=== PATIENT | male | born 1965 | race Caucasian/White ===

== ENCOUNTER 2022-05-22 21:56 | Emergency (ER) | payer BC, OTHER, SELFPAY ==
[2022-05-22 22:03] VITALS: BP 146/102; PULSE 87; RESP 16; TEMP 36.3; O2SAT 95; BMI 45.3
--- NOTE | 2022-05-23 01:54 | ED.WOUNDLAC ---
HPI - Wound/Laceration General Chief Complaint: Laceration/Wound Stated Complaint: LEFT EYE INJURY - CAT Time Seen by Provider: 05/23/22 00:05 History of Present Illness HPI narrative: 56-year-old man presenting with laceration to his eye. Was resting on the couch with cat Antonio nearby. Getting up must have startled Antonio who swatted out. Then he noted the blood. Not really affecting his vision. Having a great deal of pain; ?11 ?. Had pulled down on his eye and saw that it was gapping. cat utd. Takes gabapentin and ibuprofen regularly Related Data Home Medications Medication Instructions Recorded Confirmed Benadryl 05/22/22 gabapentin 05/22/22 ibuprofen 05/22/22 Allergies Allergy/AdvReac Type Severity Reaction Status Date / Time No Known Drug Allergies Allergy Verified 05/22/22 22:07 Review of Systems Status of ROS: Reports: 6 or more systems reviewed and unremarkable except as noted in History and below PFSH PFS Social History Smoking Status: Never smoker How often do you have a drink containing alcohol: monthly or less AUDIT-C Alcohol total score: 1 Non-prescribed substance use details: cbd edibles Exam Narrative: Exam Narrative: Pleasant. NAD. Large man. calm There is a looks to be about a 1 in diagonal laceration dropping away inferior starting just medial to midline below the left eye in the lower eyelid not involving the lid margin. gaps and bleeds easily with manipulation. deepest aspect is superior. is not through and through. no ducts appear to be involved. EOMi and full eyelid appears to open and close normally. I do not see orbiculus muscle involvement. there does not appear to be trauma to the eye itself, corneal or otherwise upon closer inspection. no scleral injection. Const: Vital Signs, click to edit/add: Vital Signs - 24 hr 05/22/22 22:03 Temperature 97.3 F L Pulse Rate [Left P ulse Oximeter] 87 Respiratory Rate 16 Blood Pressure [Ri ght Upper Arm] 146/102 H Pulse Oximetry 95 Oxygen Delivery Me thod Room Air Documenting provider has reviewed patient's vital signs: yes Course Vital Signs Vital signs: Initial Vital Signs Temperature 97.3 F L 05/22/22 22:03 Temperature Source Temporal Artery Scan 05/22/22 22:03 Pulse Rate 87 08/24/22 22:03 Respiratory Rate 16 05/22/22 22:03 Blood Pressure 146/102 H 05/22/22 22:03 Blood Pressure Mean 116 05/22/22 22:03 Blood Pressure Position Sitting 05/22/22 22:03 Pulse Oximetry 95 05/22/22 22:03 Oxygen Delivery Method 05/22/22 22:03 Vital Signs Temperature 97.3 F L 05/22/22 22:03 Pulse Rate 87 05/22/22 22:03 Respiratory Rate 16 05/22/22 22:03 Blood Pressure 146/102 H 05/22/22 22:03 Pulse Oximetry 95 05/22/22 22:03 Oxygen Delivery Method 05/22/22 22:03 Temperature 97.3 F L 05/22/22 22:03 Pulse Rate 87 05/22/22 22:03 Respiratory Rate 16 05/22/22 22:03 Blood Pressure 146/102 H 05/22/22 22:03 Pulse Oximetry 95 05/22/22 22:03 Oxygen Delivery Method 05/22/22 22:03 MDM - Wound/Laceration MDM Narrative Medical decision making narrative: cleaning especially important here. after very good anesthesia achieved with lidocaine with epi, I irrigated with normal saline under light pressure with shield. further inspection confirms initial impression. sutured with 6-0 interrupted ethilon. excellent wound approximation and control of bleeding. confirmed normal lid function. Discharge Plan Discharge Clinical Impression: Eyelid laceration Patient Disposition: Home w/ Parent or Adult Condition: Improved Additional Instructions: sutures out in 5-6 days. antibiotic ointment for 3-4 days. ok to get wet but try not to soak while sutures are in. Watch for spreading redness after 2 days accompanied by heat, swelling, marked increase in pain, purulent drainage. for further scar reduction/wound healing if desired -- after the scab falls off, can apply daily vitamin e oil, emu oil or something like maderma or silicone-containing ointments or band-aids daily. especially protect from sun exposure for the first 9 - 12 months. Prescriptions: No Action gabapentin ibuprofen Benadryl Follow Up/Referrals: Provider,Not a Local [Primary Care Provider] - Stand Alone [facility]
== END 2022-05-23 02:18 | disposition home or self-care (01) ==
PROVIDERS: Emergency Provider Family Medicine
DX: S01.112A Laceration without foreign body of left eyelid and periocular area, initial encounter (principal); W55.03XA Scratched by cat, initial encounter
CPT/HCPCS: 12011; 99283; A9270